=== PATIENT | male | born 1945 | race Caucasian/White ===

== ENCOUNTER → 2024-03-03 08:47 | Outpatient (REF) | payer MEDICARE, OTHER, SELFPAY | LOC: DHVS 08:47 | PROVIDERS: ATTENDING PHYSICIAN Physician Assistant; FAMILY PHYSICIAN Internal Medicine | DX: I73.9 Peripheral vascular disease, unspecified (principal); I77.819 Aortic ectasia, unspecified site | CPT/HCPCS: 76770; 93922; 93925 ==

== ENCOUNTER → 2024-07-14 09:43 | Outpatient (REF) | payer MEDICARE, OTHER, SELFPAY | LOC: RAD 09:43 | PROVIDERS: ATTENDING PHYSICIAN Surgery Vascular Surgery; FAMILY PHYSICIAN Internal Medicine | DX: I72.3 Aneurysm of iliac artery (principal) | CPT/HCPCS: 93922; 93978 ==

== ENCOUNTER → 2025-03-18 09:50 | Outpatient (REF) | payer MEDICARE, OTHER, SELFPAY | LOC: RAD 09:50 | PROVIDERS: ATTENDING PHYSICIAN Surgery Vascular Surgery; FAMILY PHYSICIAN Internal Medicine | DX: I77.819 Aortic ectasia, unspecified site (principal); I73.9 Peripheral vascular disease, unspecified | CPT/HCPCS: 93922; 93978 ==